=== PATIENT | male | born 1970 ===

== ENCOUNTER 2022-03-14 06:56 | Day surgery (SDC) | payer OTHER ==
[~2022-03-14] VITALS: Ht 170.2 cm; Wt 86.2 kg
[~2022-03-14 06:56] MED LIST: HYZAAR 50-12.51 EACH PO
== END 2022-03-14 18:25 | disposition home or self-care (01) ==
LOC: CIR.AMB 06:56
PROVIDERS: ATTEND Colon & Rectal Surgery
DX: D12.9 Benign neoplasm of anus and anal canal (principal); K60.3 Anal fistula; Z86.010 Personal history of colon polyps; Z20.822 Contact with and (suspected) exposure to COVID-19; K64.1 Second degree hemorrhoids; I10 Essential (primary) hypertension